=== PATIENT | female | born 1970 | race Two or more races ===

== ENCOUNTER 2022-02-18 09:58 | Inpatient (IN) | payer MEDICAID, OTHER ==
[~2022-02-18] VITALS: Ht 154.9 cm; Wt 81.6 kg
[2022-02-18 11:56] LABS: Basophils # (auto) 0.1 10 ^3/uL (0-0.2); Basophils % (auto) 1.1 % (0.0-2.0); Eosinophils # (auto) 0.1 10 ^3/uL (0-0.8); Eosinophils % (auto) 1.3 % (0.0-7.0); Hematocrit 41.2 % (36.0-46.0); Hemoglobin 13.8 g/dL (12.2-16.2); Lymphocytes # (auto) 2.7 10 ^3/uL (0.4-5.4); Lymphocytes % (auto) 28.6 % (10.0-50.0); Mean Corpuscular Hemoglobin 28.1 pg (28.0-32.0); Mean Corpuscular Hgb Conc. 33.5 g/dL (32.0-36.0); Mean Corpuscular Volume 83.9 fL (80.0-100.0); Monocytes # (auto) 0.5 10 ^3/uL (0-1.3); Neutrophils # (auto) 6.1 10 ^3/uL (1.6-8.6); Nucleated Red Blood Cells % 0.1 %; Red Blood Cells 4.92 10^6/uL (4.0-5.20); Red Cell Distribution Width 15.3 % (11.8-14.3); White Blood Cell 9.5 10^3/uL (4.4-10.8)
[2022-02-18 12:11] LABS: INR 0.99 (0.9-1.15); Partial Thromboplastin Time 27.6 sec (23.6-33.0)
[2022-02-18 12:35] LABS: Albumin 3.7 g/dL (3.4-5.0); Calcium 8.7 mg/dL (8.5-10.1); Magnesium 2.6 mg/dL (1.6-2.6); Potassium 3.6 mmol/L (3.5-5.1)
[2022-02-18 12:38] LABS: BUN/Creatinine Ratio 9.6; Bilirubin, Total 0.3 mg/dL (0.2-1.0); Total Protein 8.3 g/dL (6.4-8.2)
[2022-02-18] MEDS ORDERED: IOHEXOL 350 MG/ML 100ML IJ ONE (12:50)
[2022-02-18 18:12] LABS: Cholesterol 180 mg/dL (< 200); Triglycerides 232 mg/dL (< 150)
[2022-02-18 18:14] LABS: HDL Cholesterol 67 mg/dL (40-59); LDL Cholesterol 84 mg/dL (< 100)
[2022-02-18] MEDS ORDERED: LORazepam 2MG/ML-1ML VIAL IV PRN (21:20)
[2022-02-18] MEDS ORDERED: HYDROcodone-ACET 5/325MG TAB PO PRN (21:20)
[2022-02-18] MEDS: ATORVASTATIN 20 MG TAB PO SCH (22:06)
[2022-02-19] MEDS ORDERED: ONDANSETRON HCL 4 MG/2 ML VIAL IV PRN (02:00)
[2022-02-19] MEDS: ACETAMINOPHEN 325 MG TAB PO PRN ×2 (02:09→20:36)
[2022-02-19 02:10] VITALS: BP 142/79
[2022-02-19] MEDS ORDERED: LORA-622 PO (02:31)
[2022-02-19 05:00] VITALS: BP 127/70
[2022-02-19] MEDS: ASPirin 81 mg TAB PO SCH (08:58)
[2022-02-19 09:00] VITALS: BP 121/90
[2022-02-19 13:00] VITALS: BP 144/75
[2022-02-19 17:00] VITALS: BP 135/83
[2022-02-19] MEDS: ATORVASTATIN 20 MG TAB PO SCH (20:36)
[2022-02-19 21:45] VITALS: BP 152/83
[2022-02-20 05:00] VITALS: BP 130/72
[2022-02-20 08:00] VITALS: BP 123/59
[2022-02-20 09:00] VITALS: BP 123/59
[2022-02-20] MEDS: ASPirin 81 mg TAB PO SCH (09:49)
[2022-02-20 13:00] VITALS: BP 134/75
[2022-02-20 17:00] VITALS: BP 147/90
== END 2022-02-20 21:16 | disposition home or self-care (01) | DRG 43 ==
LOC: ER 09:58 → TELE 17:32 → TELE-WESTW 02-19 01:27
PROVIDERS: ADMIT Internal Medicine; ATTEND Internal Medicine
DX: G37.9 Demyelinating disease of central nervous system, unspecified (principal); R20.2 Paresthesia of skin; Z20.822 Contact with and (suspected) exposure to COVID-19; Z79.82 Long term (current) use of aspirin; Z79.899 Other long term (current) drug therapy; Z83.3 Family history of diabetes mellitus; Z98.51 Tubal ligation status
CPT/HCPCS: 36415; 70496; 70498; 70551; 71045; 72125; 80053; 80061; 83605; 83735; 83880; 84484; 85025; 85610; 85730; 86850; 86900; 86901; 93005; 93306; G0378